=== PATIENT | female | born 2000 | race Hispanic/Latino ===

== ENCOUNTER 2021-03-16 09:53 | Outpatient (CLI) | payer OTHER | END 2021-03-16 09:54 | disposition home or self-care (01) | LOC: CSHULT 09:53 | PROVIDERS: ATTEND Family Medicine | DX: Z34.82 Encounter for supervision of other normal pregnancy, second trimester (principal); Z3A.20 20 weeks gestation of pregnancy | CPT/HCPCS: 76805 ==

== ENCOUNTER 2021-06-28 16:12 | Day surgery (SDC) | payer OTHER ==
[2021-06-28] MEDS ORDERED: hydrALAZINE 20 MG/ML VIAL SLOW IVP PRN (16:52)
[2021-06-28 18:10] LABS: Fetal Membranes Rupture No Membranes Rupture (No Rupture)
== END 2021-06-28 18:37 | disposition home health service (06) ==
LOC: CSHLD/OP 16:12
PROVIDERS: ATTEND Family Medicine
DX: O99.891 Other specified diseases and conditions complicating pregnancy (principal); N89.8 Other specified noninflammatory disorders of vagina; R25.2 Cramp and spasm; Z3A.35 35 weeks gestation of pregnancy
CPT/HCPCS: 84112; 87480; 87510; 87660; 99283